=== PATIENT | female | born 1995 | race Caucasian/White ===

== ENCOUNTER 2023-03-17 14:02 | Emergency (ER) | payer MEDICAID, SELFPAY ==
[2023-03-17 14:39] VITALS: BP 128/79; PULSE 95; RESP 16; TEMP 37.1; O2SAT 98; BMI 29.3
[2023-03-17 16:28] LABS: Appearance Urine Clear (Clear); Bilirubin Urine Negative (Negative); Blood Urine Negative (Negative); Color Urine Yellow (Yellow); Glucose Urine Negative (Negative); Ketones Urine Trace (Negative); Leukocyte Esterase Urine Negative (Negative); Nitrite Urine Negative (Negative); Protein Urine Negative (Negative); Urobilinogen Urine 0.2 (0.2-1.0)
[2023-03-17 16:54] LABS: RBC Urine 0-2 (0-2); Squamous Epithelial Cell Urine Few (None-Few); WBC Urine 0-2 (0-5)
--- NOTE | 2023-03-17 17:35 | PC.NURSE ---
Pt reassessed, pain still right sided abdominal, has been constant since 1300 yesterday. Pain 5/10, denies fever or chills currently. Pt is nauseated, hurts to stand up and walk. NPO since 1315 today.
[2023-03-17 17:36] VITALS: BP 145/80; PULSE 68; RESP 18; TEMP 36.6; O2SAT 100
[2023-03-17 18:23] VITALS: BP 112/66; PULSE 64; RESP 16; O2SAT 99
--- NOTE | 2023-03-17 18:23 | CRLHL7_ITS ---
For Patients: As a result of the 21st Century Cures Act, medical imaging exams and procedure reports are released immediately into your electronic medical record. You may view this report before your referring provider. If you have questions, please contact your health care provider. INDICATION: Migratory right side abdominal pain, RUQ and RLQ. TECHNIQUE: CT of the abdomen and pelvis with 83 cc Isovue 370 IV contrast. Coronal and sagittal reconstructions. COMPARISON: None. FINDINGS: Subcentimeter hypodensity in the left hepatic lobe segment 2 is too small to characterize (series 2, image 17). The liver is otherwise unremarkable. The gallbladder, spleen, pancreas, and adrenal glands are negative. No biliary dilation. Hepatic and portal veins appear patent. Symmetric enhancement of the kidneys. No hydronephrosis or ureteral dilation. No obstructing urinary calculi identified. Small nonobstructing left renal caliceal stone. The bladder is normal in appearance. Uterus is unremarkable. No adnexal mass. Trace free fluid in the right adnexa. No small bowel dilation. Large amount of stool in the ascending and transverse colon. Negative appendix. No intraperitoneal free air. No lymphadenopathy. Small fat containing umbilical hernia. There are multiple noncalcified pulmonary nodules in the lung bases bilaterally. The largest nodule measures 4 mm in the lateral right lower lobe (series 3, image 1). The lung bases are otherwise clear. The bones are unremarkable. IMPRESSION: 1. Large amount of stool. The appendix is negative. 2. Trace free fluid in the right adnexa is likely physiologic. No adnexal mass is visualized. 3. Multiple small noncalcified pulmonary nodules are likely benign given patient age, however metastatic disease cannot be excluded. Correlate with any history of malignancy. 4. No other acute findings in the abdomen or pelvis. Please note that all CT scans at this facility use dose modulation, iterative reconstruction, and/or weight-based dosing when appropriate to reduce radiation dose to as low as reasonably achievable. Dictated by Camryn Mejia MD @ 03/17/2023 9:09:02 PM (Electronically Signed)
--- NOTE | 2023-03-17 18:25 | ED.GENADULT ---
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 Symptoms actually began last night with some intermittent crampy fairly generalized abdominal pain. She was able to go to bed but had trouble sleeping last night. Since about 1:30 a.m. pain has been worsened has been localizing more to her right side. The pain is both in the right upper quadrant and right lower quadrant. Perhaps worse in the right upper quadrant. She has been mildly nauseous but not vomiting. She does have a tendency to be constipated sometimes has to take stool softeners. She has been pooping today and yesterday. Stools have been firm and hard and difficult to pass but not really constipated. No bloody or mucousy stool. No diarrhea. She has not had any urinary symptoms such as dysuria, urgency, frequency, hematuria. No fever chills. No back pain. No known injury. She tried to take ibuprofen this morning but it did not help her pain. Pain was getting worse this afternoon so she came here to the ER. The pain does come and go , especially last night, but it has been more continuous since this morning. She has not had previous similar pains to this in the past. Related Data Home Medications Medication Instructions Recorded Confirmed desogestrel 0.15 mg-ethinyl 1 tab PO DAILY 03/17/23 03/17/23 estradiol 0.03 mg tablet (Apri) Previous Rx's Medication Instructions Recorded bisacodyl 10 mg rectal suppository 10 mg CA DAILY PRN constipation 03/17/23 (Laxative (bisacodyl)) #12 ea Allergies Allergy/AdvReac Type Severity Reaction Status Date / Time No Known Drug Allergies Allergy Verified 08/23/22 16:51 [facility] Medical History (Updated 03/17/23 @ 22:02 by Sahil Chen MD) Otitis externa ?H60.90 - Unspecified otitis externa, unspecified ear (ICD-10) AOM (acute otitis media) ?H66.90 - Otitis media, unspecified, unspecified ear (ICD-10) Social History Smoking Status: Never smoker How often do you have a drink containing alcohol: never AUDIT-C Alcohol total score: 0 Non-prescribed substance use: denies use Exam Narrative: Exam Narrative: Constitutional: Appears well-developed and well-nourished. Alert. Conversant. Non toxic. HENT: Head: Atraumatic. Nose: Nose normal. Mouth/Throat: Oral mucosa is clear and moist. no trismus. Pharynx normal. Tonsils symmetric. No tonsillar enlargement, erythema, or exudate. Eyes: Conjunctivae normal. EOM normal. Pupils equal, round, and reactive to light. No scleral icterus. Neck: Normal range of motion. Neck supple. No tracheal deviation present. Cardiovascular: Normal rate, regular rhythm. No gallop. No friction rub. No murmur heard. Symmetric radial artery pulses Pulmonary/Chest: Effort normal. No stridor. No respiratory distress. No wheezes. No rales. No rhonchi . No ribcage tenderness. Abdominal: Soft. Bowel sounds normal. No distension. No mass. Right upper quadrant> right lower quadrant and left lower quadrant tenderness. No significant epigastric or left upper quadrant tenderness. Right CVA tenderness but no left CVA tenderness. No rebound. No guarding. Musculoskeletal: RUE: Normal range of motion. No tenderness. No deformity LUE: Normal range of motion. No tenderness. No deformity RLE: Normal range of motion. No edema. No tenderness. No deformity LLE: Normal range of motion. No edema. No tenderness. No deformity Neurological: Alert and oriented to person, place, and time. Normal strength. CN II-VII intact. No sensory deficit. GCS eye subscore is 4. GCS verbal subscore is 5. GCS motor subscore is 6. Normal coordination Skin: Skin is warm and dry. No rash noted. No pallor. Normal capillary refill. Psychiatric: Normal mood. Normal affect. Const: Vital Signs, click to edit/add: Vital Signs - 24 hr 03/17/23 14:39 03/17/23 17:36 03/17/23 18:23 Temperature 98.7 F 97.8 F Pulse Rate [Right Pulse Oximeter] 95 68 64 Respiratory Rate 16 18 16 Blood Pressure [Ri ght Upper Arm] 128/79 145/80 H 112/66 Pulse Oximetry 98 100 99 Oxygen Delivery Me thod Room Air Room Air Room Air 03/17/23 20:00 03/17/23 20:00 03/17/23 22:07 Temperature 97.8 F Pulse Rate [Right Pulse Oximeter] 66 66 Respiratory Rate 16 16 Blood Pressure [Ri ght Upper Arm] 114/74 114/74 Pulse Oximetry 99 99 Oxygen Delivery Me thod Room Air Course Course ED Course: Recheck-pain tolerable to manage. Was considerably better after Toradol but that is turning to her off now. She does not need additional pain medicine at this time. Vital Signs Vital signs: Initial Vital Signs Temperature 98.7 F 03/17/23 14:39 Temperature Source Temporal Artery Scan 03/17/23 14:39 Pulse Rate 95 03/17/23 14:39 Respiratory Rate 16 03/17/23 14:39 Blood Pressure 128/79 03/17/23 14:39 Blood Pressure Mean 95 03/17/23 14:39 Blood Pressure Position Sitting 03/17/23 14:39 Pulse Oximetry 98 03/17/23 14:39 Oxygen Delivery Method Room Air 03/17/23 14:39 Vital Signs Temperature 98.7 F 03/17/23 14:39 Pulse Rate 95 03/17/23 14:39 Respiratory Rate 16 03/17/23 14:39 Blood Pressure 128/79 03/17/23 14:39 Pulse Oximetry 98 03/17/23 14:39 Oxygen Delivery Method Room Air 03/17/23 14:39 Temperature 97.8 F 03/17/23 22:07 Pulse Rate 66 03/17/23 22:07 Respiratory Rate 16 03/17/23 22:07 Blood Pressure 114/74 03/17/23 22:07 Pulse Oximetry 99 03/17/23 20:00 Oxygen Delivery Method Room Air 03/17/23 20:00 Medical Decision Making MDM Narrative Medical decision making narrative: Presented to the Emergency Department with colicky intermittent abdominal pain that began in generalized abdomen yesterday but is now more prominent on the right side. Pain is mostly in the right upper quadrant but also a bit in the right lower quadrant. The differential diagnosis of abdominal pain includes: Appendicitis, Bowel Obstruction, Ulcer, Ischemia, Cholecystitis, Diverticulitis, Pancreatitis, UTI, kidney stone, Enteritis/Colitis, amongst many other etiologies. Laboratory testing does not reveal a cause for the patient's pain. CT Imaging is noted to be normal save for findings of significant constipation.. The exact etiology of the abdominal pain is not clear at this time. However with colicky pain this may potentially be related to constipation. We will try to treat her constipation with magnesium citrate. First 150 mL dose administered here in the ER. She will take another dose in the morning. No life threatening cause or need for emergent surgery or hospital admission is detected today. The patient was advised that if symptoms do not completely resolve after BM or after another 12-24 hours re-evaluation with primary care or return to the ED is indicated. The patient also understands that if they worsen, they should return to the ER right away. I discussed the uncertainty about the diagnosis and answered the patient's questions. Abdominal pain return precautions discussed. Incidentally she has pulmonary nodules noted in her lung [place]. There are multiple of these. She has no history of malignancy or metastasis. Overall would be low risk based on age and demographics. Discussed the nodules with the patient and her mother. Recommended outpatient follow-up with a primary care to consider surveillance imaging. Lab Data Labs: Lab Results 03/17/23 03/17/23 03/17/23 Range/Units 14:34 18:46 Unknown WBC 6.47 (4.50-11.00) K/uL RBC 4.09 (4.00-5.20) m/uL Hgb 11.8 L (12.0-16.0) gm/dL Hct 36.3 (33.0-51.0) % MCV 89 (80-100) fL MCH 29 (26-34) pg MCHC 33 (32-36) gm/dL RDW Coeff of Lo 12.8 (11.5-15.5) % Plt Count 263 (140-440) K/uL Neut % (Auto) 70.1 (42.0-72.0) % Lymph % (Auto) 23.5 (20-44) % [place] % (Auto) 4.9 (0.0-11.0) % Eos % (Auto) 1.1 (0.0-7.0) % Baso % (Auto) 0.2 (0.0-3.0) % Neut # (Auto) 4.54 (1.7-7.0) K/uL Lymph # (Auto) 1.52 (0.90-2.90) K/uL [place] # (Auto) 0.30 (0.00-0.90) K/UL Eos # (Auto) 0.07 (0.00-0.50) K/uL Baso # (Auto) 0.01 (0.00-0.30) K/uL Abs Immat Gran (auto) 0.01 (0.00-0.30) K/uL Imm/Tot Granulo (auto) 0.2 % Sodium 140 (135-149) mmol/L Potassium 3.6 (3.6-5.1) mmol/L Chloride 109 (96-114) mmol/L Carbon Dioxide 24 (20-32) mmol/L Anion Gap 7 (7-15) mEq/L BUN 17 (5-24) mg/dL Creatinine 0.7 (0.5-1.5) mg/dL Estimated Creat Clear 97.17 Estimated GFR 123 ml/min Glucose 97 (60-115) mg/dL Calcium 9.1 (8.4-10.6) mg/dL Total Bilirubin 0.4 (0.1-1.5) mg/dL AST 30 (12-35) U/L ALT 21 (4-35) U/L Alkaline Phosphatase 68 (40-150) U/L Total Protein 7.7 (6.0-8.3) g/dL Albumin 4.3 (3.3-5.0) g/dL Lipase 122 (23-300) U/L Urine Color Yellow (Yellow) Urine Appearance Clear (Clear) Urine pH 7.0 (5.0-8.5) Ur Specific [place] 1.020 (1.000-1.030) Urine Protein Negative (Negative) Urine Glucose (UA) Negative (Negative) Urine Ketones Trace A (Negative) Urine Blood Negative (Negative) Urine Nitrite Negative (Negative) Urine Bilirubin Negative (Negative) Urine Urobilinogen 0.2 (0.2-1.0) Ur Leukocyte Esterase Negative (Negative) Urine RBC 0-2 (0-2) Urine WBC 0-2 (0-5) Ur Squamous Epith Cells Few (None-Few) Urine Bacteria None (None) Urine HCG, Qual Negative (Negative) Imaging Data CT scan - abdomen: Attestation: I have reviewed the pertinent imaging results. Radiologist's impression: IMPRESSION: 1. Large amount of stool. The appendix is negative. 2. Trace free fluid in the right adnexa is likely physiologic. No adnexal mass is visualized. 3. Multiple small noncalcified pulmonary nodules are likely benign given patient age, however metastatic disease cannot be excluded. Correlate with any history of malignancy. 4. No other acute findings in the abdomen or pelvis. Discharge Plan Discharge Clinical Impression: Multiple pulmonary nodules, Abdominal pain, Constipation Patient Disposition: Home, Self-Care Condition: Stable Instructions: Constipation (DC), Abdominal Pain (ED) Additional Instructions: For your abdominal pain-your labs and CT scan look reassuring at this time. We suspect your pain is probably related to constipation. Take the laxative with your 1st dose tonight and your 2nd dose tomorrow morning. If your not passing a bowel movement within 6 hours of your 2nd dose come back to the ER. If you pass a bowel movement but your pain does not resolve, return to the ER for recheck. If pain is not tremendously improved within 24 hours, come back to the ER to be rechecked. If you get worse, come back to the ER right away. On your CT scan the radiologist sees several small spots in your lungs. These nodules are probably benign. However, please follow-up with your regular doctor within the next couple of weeks to discuss the nodules. You may need to arrange a follow-up chest x-ray are scan in 6-12 months to recheck them. Prescriptions: New bisacodyl [Laxative (bisacodyl)] 10 mg suppository 10 mg CA DAILY PRN (Reason: constipation) Qty: 12 0RF No Action desogestrel-ethinyl estradiol [Apri] 0.15-0.03 mg tablet 1 tab PO DAILY Follow Up/Referrals: Provider,Not a Local [Primary Care Provider] - Stand Alone Forms: [facility] Info Instructions
[2023-03-17 18:31] LABS: Ur HCG Qualitative* Negative (Negative)
[2023-03-17] MEDS: KETOROLAC 15 MG/ML inj IVP (18:50)
[2023-03-17 19:02] LABS: Basophils Absolute Auto 0.01 K/uL (0.00-0.30); Basophils Percent Auto 0.2 % (0.0-3.0); Eosinophils Absolute Auto 0.07 K/uL (0.00-0.50); Eosinophils Percent Auto 1.1 % (0.0-7.0); Hematocrit 36.3 % (33.0-51.0); Hemoglobin* 11.8 gm/dL (12.0-16.0); Immature Granulocytes Abs Auto 0.01 K/uL (0.00-0.30); Immature Granulocytes Pct Auto 0.2 %; Lymphocytes Absolute Auto 1.52 K/uL (0.90-2.90); Lymphocytes Percent Auto 23.5 % (20-44); Mean Corpuscular HGB Conc 33 gm/dL (32-36); Mean Corpuscular Hemoglobin 29 pg (26-34); Mean Corpuscular Volume 89 fL (80-100); Monocytes Percent Auto 4.9 % (0.0-11.0); Neutrophils Absolute Auto 4.54 K/uL (1.7-7.0); Neutrophils Percent Auto 70.1 % (42.0-72.0); Platelet Count* 263 K/uL (140-440); RDW Coefficient of Variation % 12.8 % (11.5-15.5); Red Blood Count 4.09 m/uL (4.00-5.20); White Blood Count* 6.47 K/uL (4.50-11.00)
[2023-03-17 19:05] LABS: Slide Review Reflex No
[2023-03-17 19:12] LABS: Albumin* 4.3 g/dL (3.3-5.0)
[2023-03-17 19:13] LABS: Chloride* 109 mmol/L (96-114); Potassium* 3.6 mmol/L (3.6-5.1); Sodium* 140 mmol/L (135-149)
[2023-03-17 19:15] LABS: Anion Gap 7 mEq/L (7-15); Aspartate Amino Transferase* 30 U/L (12-35); Bilirubin Total* 0.4 mg/dL (0.1-1.5); Carbon Dioxide* 24 mmol/L (20-32); Creatinine* 0.7 mg/dL (0.5-1.5); Est. Creatinine Clearance* 97.17; Estimated Glomerular Filt Rate 123 ml/min
[2023-03-17 19:16] LABS: Alanine Aminotransferase* 21 U/L (4-35); Alkaline Phosphatase* 68 U/L (40-150); Blood Urea Nitrogen* 17 mg/dL (5-24); Calcium* 9.1 mg/dL (8.4-10.6); Glucose* 97 mg/dL (60-115); Total Protein* 7.7 g/dL (6.0-8.3)
[2023-03-17 19:26] LABS: Lipase* 122 U/L (23-300)
[2023-03-17 20:00] VITALS: BP 114/74; PULSE 66; RESP 16; O2SAT 99
[2023-03-17] MEDS: MAGNESIUM CITRATE 300 ML SOLUTION 150 ML PO (21:59)
[2023-03-17 22:07] VITALS: BP 114/74; PULSE 66; RESP 16; TEMP 36.6
== END 2023-03-17 22:09 | disposition home or self-care (01) ==
PROVIDERS: Emergency Medicine; Emergency Provider Emergency Medicine
DX: R91.8 Other nonspecific abnormal finding of lung field (principal); R10.9 Unspecified abdominal pain; K59.00 Constipation, unspecified
CPT/HCPCS: 36415; 74177; 80053; 81001; 81025; 83690; 85025; 94761; 96374; 99284; 99285; A9270; J1885; Q9967

== ENCOUNTER 2023-05-13 15:57 | Emergency (ER) | payer MEDICAID, SELFPAY ==
[2023-05-13 16:02] VITALS: BP 135/78; PULSE 87; RESP 20; TEMP 36.7; O2SAT 100; BMI 28.0
--- NOTE | 2023-05-13 16:39 | ED.GENADULT ---
HPI - General Adult General Chief complaint: Headache/Migraine Stated complaint: Headache, nausea, chills Time Seen by Provider: 05/13/23 16:17 Source: patient Mode of arrival: ambulatory Limitations: no limitations History of Present Illness HPI narrative: 27-year-old female coming in today complaining of not feeling well for couple of days. States that she has had a headache that runs across the entire forehead feels like pressure. She feels tired and weak. States that today she felt very lightheaded. She denies fevers or chills. Appetite has been normal. Last menstrual period was 2 weeks ago. She denies vomiting but has been feeling nauseated. She denies any rashes. No urinary symptoms. She does work in a [employer] school and has been in contact with multiple illnesses. She just finished treatment for strep pharyngitis. Denies any sore throat. Mild cough on and off. Past medical history is benign. She takes no regular medications. She does vape nicotine occasionally. Related Data Home Medications Medication Instructions Recorded Confirmed desogestrel 0.15 mg-ethinyl 1 tab PO DAILY 03/17/23 03/17/23 estradiol 0.03 mg tablet (Apri) Allergies Allergy/AdvReac Type Severity Reaction Status Date / Time No Known Drug Allergies Allergy Verified 05/02/23 17:20 Review of Systems Status of ROS: Reports: 10 or more systems reviewed and unremarkable except as noted in History and below [facility] Medical History Otitis externa ?H60.90 - Unspecified otitis externa, unspecified ear (ICD-10) AOM (acute otitis media) ?H66.90 - Otitis media, unspecified, unspecified ear (ICD-10) Social History Smoking Status: Never smoker How often do you have a drink containing alcohol: never AUDIT-C Alcohol total score: 0 Non-prescribed substance use: denies use Exam Narrative: Exam Narrative: Well-nourished well-developed patient in no acute distress. Alert and oriented. Answers questions appropriately. Mood and affect are appropriate. Thoughts are goal oriented and rational. No tangential or magical thinking noted. Patient speaks in full sentences without needing to catch her breath. HEENT: Normocephalic atraumatic. Pupils are equally round reactive to light. Extraocular muscles are intact. Conjunctivae are moist without any icterus noted. Moist mucous membranes. Posterior pharynx is normal. Neck is soft without any lymphadenopathy or thyromegaly. No masses are appreciated. Cardiovascular: Heart is regular rate and rhythm S1 and S2 are present without any murmurs. Lungs: Clear to auscultation bilaterally no wheezes rhonchi or rales are appreciated. Patient takes deep breaths without any discomfort. Abdomen: Soft and nontender nondistended with normal bowel sounds. Extremities: Bilateral lower extremities are without edema. Skin: Well perfused without any obvious rashes. Const: Vital Signs, click to edit/add: Vital Signs - 24 hr 05/13/23 16:02 Temperature 98.1 F Pulse Rate [Right Radial] 87 Respiratory Rate 20 Blood Pressure [Ri ght Upper Arm] 135/78 Pulse Oximetry 100 Oxygen Delivery Me thod Room Air Course Course ED Course: IV established and patient was given IV fluids, Toradol and Zofran for her symptoms. She did feel improvement. CBC was unremarkable. Chemistries are normal. Triple swab is positive for RSV. Vital Signs Vital signs: Initial Vital Signs Temperature 98.1 F 05/13/23 16:02 Temperature Source Temporal Artery Scan 05/13/23 16:02 Pulse Rate 87 05/13/23 16:02 Pulse Rhythm Regular 05/13/23 16:02 Pulse Strength 3+ Normal 05/13/23 16:02 Respiratory Rate 20 05/13/23 16:02 Blood Pressure 135/78 05/13/23 16:02 Blood Pressure Mean 97 05/13/23 16:02 Blood Pressure Position Supine 05/13/23 16:02 Pulse Oximetry 100 05/13/23 16:02 Oxygen Delivery Method Room Air 05/13/23 16:02 Vital Signs Temperature 98.1 F 05/13/23 16:02 Pulse Rate 87 05/13/23 16:02 Respiratory Rate 20 05/13/23 16:02 Blood Pressure 135/78 05/13/23 16:02 Pulse Oximetry 100 05/13/23 16:02 Oxygen Delivery Method Room Air 05/13/23 16:02 Temperature 98.1 F 05/13/23 16:02 Pulse Rate 87 05/13/23 16:02 Respiratory Rate 20 05/13/23 16:02 Blood Pressure 135/78 05/13/23 16:02 Pulse Oximetry 100 05/13/23 16:02 Oxygen Delivery Method Room Air 05/13/23 16:02 Medical Decision Making MDM Narrative Medical decision making narrative: 27-year-old female with RSV. We discussed symptomatic treatment reasons for follow-up. Lab Data Lab results reviewed: Yes I reviewed the patient's lab results Labs: Lab Results 05/13/23 05/13/23 Range/Units 16:52 Unknown WBC 8.66 (4.50-11.00) K/uL RBC 4.10 (4.00-5.20) m/uL Hgb 11.8 L (12.0-16.0) gm/dL Hct 35.8 (33.0-51.0) % MCV 87 (80-100) fL MCH 29 (26-34) pg MCHC 33 (32-36) gm/dL RDW Coeff of Lo 13.2 (11.5-15.5) % Plt Count 307 (140-440) K/uL Neut % (Auto) 79.9 H (42.0-72.0) % Lymph % (Auto) 13.5 L (20-44) % [place] % (Auto) 5.5 (0.0-11.0) % Eos % (Auto) 0.8 (0.0-7.0) % Baso % (Auto) 0.2 (0.0-3.0) % Neut # (Auto) 6.90 (1.7-7.0) K/uL Lymph # (Auto) 1.20 (0.90-2.90) K/uL [place] # (Auto) 0.50 (0.00-0.90) K/UL Eos # (Auto) 0.07 (0.00-0.50) K/uL Baso # (Auto) 0.02 (0.00-0.30) K/uL Abs Immat Gran (auto) 0.01 (0.00-0.30) K/uL Imm/Tot Granulo (auto) 0.1 % Sodium 139 (135-149) mmol/L Potassium 3.7 (3.6-5.1) mmol/L Chloride 104 (96-114) mmol/L Carbon Dioxide 25 (20-32) mmol/L Anion Gap 10 (7-15) mEq/L BUN 11 (5-24) mg/dL Creatinine 0.6 (0.5-1.5) mg/dL Estimated Creat Clear 113.36 Estimated GFR 128 ml/min Glucose 110 (60-115) mg/dL Calcium 9.2 (8.4-10.6) mg/dL HCG, Qual Negative (Negative) SARS-CoV-2 (PCR) Negative SARS-CoV-2 (Negative) Influenza Type A (PCR) Negative PCR FLU A (Negative) Influenza Type B (PCR) Negative PCR FLU B (Negative) RSV (PCR) POSITIVE PCR RSV A (Negative) Discharge Plan Discharge Clinical Impression: RSV infection Patient Disposition: Home, Self-Care Condition: Stable Additional Instructions: Make sure to stay well hydrated. Take Tylenol or ibuprofen as needed/as directed for fevers or achiness. Rest as much as possible. Prescriptions: No Action desogestrel-ethinyl estradiol [Apri] 0.15-0.03 mg tablet 1 tab PO DAILY Follow Up/Referrals: Provider,Not a Local [Primary Care Provider] - Stand Alone Forms: [facility] Info Instructions
[2023-05-13 17:00] LABS: Basophils Absolute Auto 0.02 K/uL (0.00-0.30); Basophils Percent Auto 0.2 % (0.0-3.0); Eosinophils Absolute Auto 0.07 K/uL (0.00-0.50); Eosinophils Percent Auto 0.8 % (0.0-7.0); Hematocrit 35.8 % (33.0-51.0); Hemoglobin* 11.8 gm/dL (12.0-16.0); Immature Granulocytes Abs Auto 0.01 K/uL (0.00-0.30); Immature Granulocytes Pct Auto 0.1 %; Lymphocytes Percent Auto 13.5 % (20-44); Mean Corpuscular HGB Conc 33 gm/dL (32-36); Mean Corpuscular Hemoglobin 29 pg (26-34); Mean Corpuscular Volume 87 fL (80-100); Monocytes Percent Auto 5.5 % (0.0-11.0); Neutrophils Percent Auto 79.9 % (42.0-72.0); Platelet Count* 307 K/uL (140-440); RDW Coefficient of Variation % 13.2 % (11.5-15.5); White Blood Count* 8.66 K/uL (4.50-11.00)
[2023-05-13 17:01] LABS: Slide Review Reflex No
[2023-05-13 17:18] LABS: PCR FLU A Negative PCR FLU A (Negative); PCR FLU B Negative PCR FLU B (Negative); PCR RSV POSITIVE PCR RSV (Negative); SARS PCR* Negative SARS-CoV-2 (Negative)
[2023-05-13 17:26] LABS: HCG Qualitative Serum* Negative (Negative)
[2023-05-13 17:39] LABS: Chloride* 104 mmol/L (96-114); Potassium* 3.7 mmol/L (3.6-5.1); Sodium* 139 mmol/L (135-149)
[2023-05-13 17:42] LABS: Anion Gap 10 mEq/L (7-15); Blood Urea Nitrogen* 11 mg/dL (5-24); Carbon Dioxide* 25 mmol/L (20-32); Creatinine* 0.6 mg/dL (0.5-1.5); Est. Creatinine Clearance* 113.36; Estimated Glomerular Filt Rate 128 ml/min
[2023-05-13 17:43] LABS: Calcium* 9.2 mg/dL (8.4-10.6); Glucose* 110 mg/dL (60-115)
== END 2023-05-13 18:22 | disposition home or self-care (01) ==
PROVIDERS: Emergency Provider Family Medicine
DX: R51.9 Headache, unspecified (principal); B97.4 Respiratory syncytial virus as the cause of diseases classified elsewhere
CPT/HCPCS: 36415; 80048; 84703; 85025; 87631; 96374; 96375; 99284

== ENCOUNTER 2024-01-10 08:07 | Emergency (ER) | payer MEDICAID, SELFPAY ==
[2024-01-10 08:09] VITALS: BP 114/69; PULSE 97; RESP 18; TEMP 37.1; O2SAT 98; BMI 29.3
--- NOTE | 2024-01-10 08:31 | ED.GENADULT ---
HPI - General Adult General Chief complaint: Cough Stated complaint: Cough, lost voice Time Seen by Provider: 01/10/24 08:16 History of Present Illness HPI narrative: This 28-year-old female comes in with her son and reports a cough that she has had for the past couple days. She does not report any fevers or shortness of breath. She states that she is on some ear drops for an ear infection. She arrives with normal vital signs. She does report some laryngitis and is mostly able to walk with her. Related Data Home Medications ?Medication ?Instructions ?Recorded ?Confirmed No Known Home Medications 01/10/24 01/10/24 Allergies Allergy/AdvReac Type Severity Reaction Status Date / Time No Known Drug Allergies Allergy Verified 01/05/24 14:35 Review of Systems Status of ROS: Reports: 10 or more systems reviewed and unremarkable except as noted in History and below Narrative: Constitutional: No fevers, no weight gain or loss. Eyes: No discharge. No vision changes. HENT: No congestion, no sore throat, no ear pain. Cardiovascular: No chest pain, no palpitations. Respiratory: No shortness of breath, no wheezes. Occasional cough. Gastrointestinal: No abdominal pain, no vomiting, no diarrhea. Genitourinary: No dysuria, no hematuria. Musculoskeletal: Normal range of motion. Skin: No rashes, no pruritis. Neurological: No dizziness, weakness, sensory change, speech change. Endo/Heme/Allergies: No bruising or bleeding. No polydipsia. Pysch: no suicidality, no anxiety, no insomnia. All other systems reviewed and are negative. [facility] Medical History Otitis externa ?H60.90 - Unspecified otitis externa, unspecified ear (ICD-10) AOM (acute otitis media) ?H66.90 - Otitis media, unspecified, unspecified ear (ICD-10) Social History Smoking Status: Never smoker How often do you have a drink containing alcohol: never AUDIT-C Alcohol total score: 0 Non-prescribed substance use: denies use Exam Narrative: Exam Narrative: Constitutional: Well-developed, well-nourished, no acute distress. HEENT: Normocephalic, atraumatic. Oropharynx appears normal. Tympanic membranes are not visualized bilaterally because of cerumen and ear drops in place. Neck: Normal range of motion. Nontender. Supple. Heart: Regular. No murmurs. Normal rate. Intact distal pulses. Lungs: Clear to auscultation. No chest discomfort. No wheezes, rhonchi, or rales. Abdomen: Normal bowel sounds. Nontender. No rebound tenderness. Genitalia: Deferred. Back: No midline tenderness. Normal range of motion. Extremities: Normal range of motion. No injury. Skin: Intact. No rash. Warm. No erythema or pallor. Neurologic: No altered sensation. No weakness. Alert and oriented. Psychiatric: No suicidality. No anxiety or depression. No insomnia. Nursing notes and vitals signs are reviewed. Const: Vital Signs, click to edit/add: Vital Signs - 24 hr 01/10/24 08:09 Temperature 98.7 F Pulse Rate [Right Pulse Oximeter] 97 Respiratory Rate 18 Blood Pressure [Ri ght Upper Arm] 114/69 Pulse Oximetry 98 Oxygen Delivery Me thod Room Air Course Vital Signs Vital signs: Initial Vital Signs Temperature 98.7 F 01/10/24 08:09 Temperature Source Temporal Artery Scan 01/10/24 08:09 Pulse Rate 97 01/10/24 08:09 Respiratory Rate 18 01/10/24 08:09 Blood Pressure 114/69 01/10/24 08:09 Blood Pressure Mean 84 01/10/24 08:09 Blood Pressure Position Sitting 01/10/24 08:09 Pulse Oximetry 98 01/10/24 08:09 Oxygen Delivery Method Room Air 01/10/24 08:09 Vital Signs Temperature 98.7 F 01/10/24 08:09 Pulse Rate 97 01/10/24 08:09 Respiratory Rate 18 01/10/24 08:09 Blood Pressure 114/69 01/10/24 08:09 Pulse Oximetry 98 01/10/24 08:09 Oxygen Delivery Method Room Air 01/10/24 08:09 Temperature 98.7 F 01/10/24 08:09 Pulse Rate 97 01/10/24 08:09 Respiratory Rate 18 01/10/24 08:09 Blood Pressure 114/69 01/10/24 08:09 Pulse Oximetry 98 01/10/24 08:09 Oxygen Delivery Method Room Air 01/10/24 08:09 Medical Decision Making MDM Narrative Medical decision making narrative: This patient comes in with upper respiratory symptoms and has normal vital signs. She does have laryngitis and symptoms are very typical of a viral infection. I did discuss nasal swab testing which the patient declined in a process of shared decision making. She did receive an oral dose of dexamethasone 10 mg. Discharge Plan Discharge Clinical Impression: Acute upper respiratory infection Patient Disposition: Home, Self-Care Condition: Stable Additional Instructions: Use [id number] medicines for cough, congestion, and pain as needed and directed. Follow up with MD return if worsening. Prescriptions: No Action No Known Home Medications Follow Up/Referrals: Provider,Not a Local [Primary Care Provider] - Stand Alone Forms: [facility] Medical Info Instructions
[2024-01-10] MEDS: dexAMETHasone 10 MG/ML inj PO (08:45)
== END 2024-01-10 08:50 | disposition home or self-care (01) ==
LOC: ED 08:45
PROVIDERS: Emergency Provider Emergency Medicine Emergency Medical Services
DX: J06.9 Acute upper respiratory infection, unspecified (principal)
CPT/HCPCS: 99283; 99284; J1100

== ENCOUNTER 2024-03-26 12:30 | Outpatient (CLI) | payer MEDICAID, SELFPAY ==
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
[2024-03-26 14:49] LABS: Chlamydia DNA Amplified* NOT DETECTED (No Detected); GC DNA Amplified* NOT DETECTED (No Detected)
== END 2024-03-26 12:31 | disposition home or self-care (01) ==
LOC: NFLDUCREF 12:31
PROVIDERS: Visit Provider Nurse Practitioner Family
DX: N89.8 Other specified noninflammatory disorders of vagina (principal)
CPT/HCPCS: 87086; 87491; 87591

== ENCOUNTER 2024-09-20 19:29 | Emergency (ER) | payer MEDICAID, SELFPAY ==
--- OUTSIDE RECORDS SUMMARY | 2024-09-20 19:31 | XMS_ITS | Clinical Summary ---
Author Organization [employer] [facility] Address [address] [place] [id number] Care Team Providers Care Box Annealer Name Role Phone Digna Contreras MD Primary [...] Negative Negative Past Medical History: . 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 Laterality Date TYMPANOSTOMY No data on file. Problems (from [...] she was 14. 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 Problems (from 04/12/18 to present) No problems associated with this episode. ANAMARIA Chase.....05/05/2018 8:48 AM chickenpox 09/12/1998 01/19/2010 Immunizations Immunization Administration Dates Next Due DTaP 01/08/2003, 0,01/08/1998,10/03,1997 [...] is your housing situation today? 1 06/07/2023 Utilities Answer Date Recorded Do you have trouble paying f or utilities (for example, heat, electricity, water, phone)? 1 06/07/2023 Comments No Sex and Gender Information Value Date Recorded Sex Assigned at Not on file Legal Sex Female 5:40 AM MEMS DEVICE SCIENTIST Gender Identity Not on file Sexual Orientation [...] 85 12/20/2023 3:20 PM CDT Temperature 36.6 C (97.9 F) 06/07/2023 8:50 AM MEMS DEVICE SCIENTIST Respiratory Rate 16 11/20/2020 4:04 PM CDT Oxygen Saturation 99% 12/20/2023 3:20 PM CDT Inhaled Oxygen Concentration - - Weight 72 kg (158 lb 12.8 oz) 12/20/2023 3:20 PM CDT Height 156.2 cm (5' 1.5) 12/20/2023 3:20 PM CDT Body Mass Index 29.52 12/20/2023 3:20 PM CDT Plan of Treatment Health Maintenance Due Date Last Done Comments COVID-19 vaccine series ( season) 2024 Pap test for age 21-65 12/03/2024 , 12/03/2021, 04/21/2020, Additional history exists BMI (ht and wt on same day) for age 18+ 12/19/2024 12/20/2023, 08/16/2023, 12/03/2021, Additional history exists Depression screening for age 12+ 12/19/2024 12/20/2023, 12/03/2021, 11/20/2020, Additional history exists Influenza Vaccine (Season Ended) 2025 02/06/2021, 02/20/2020, 04/12/2018, Additional history exists Tetanus booster 07/17/2030 07/17/2020, 08/22, 01/19/2010 HIV for age 15-65 Completed 02/20/2020, , 01/19/2017 Hepatitis C screening for age 18-79 Completed 02/20/2020, 04/12/2018, 01/19/2017 Tdap Completed 07/17/2020, 08/22, 01/19/2010 Pneumococcal series for age 6-49 Aged Out No longer eligible based on patient's age to complete this topic Procedures Procedure Name Priority Date/Time Associated Diagnosis Comments HPV HIGH RISK Routine 12/03/2021 4:20 PM CDT Pap smear for cervical cancer screening ANTI HIV 1/2 Routine 02/20/2020 3:56 PM CDT Encounter for supervision of normal first in first trimester (HC) ANTI HCV Routine 02/20/2020 3:56 PM CDT Encounter for supervision of normal first in first trimester (HC) from Last 3 Months or Most Recently Relevant to Health Maintenance Results * HPV HIGH RISK (12/03/2021 4:20 PM CDT) TYPE 16 Negative Negative 12/08/2021 6:00 AM CDT [facility] [employer] [facility] TYPE 18 Negative Negative 12/08/2021 6:00 AM CDT [facility] [employer] OTHER HIGH RISK TYPES Negative Negative 12/08/2021 6:00 AM CDT [facility] Other (Cervical) Non-Blood / Unknown 12/03/2021 4:20 PM CDT 12/04/2021 3:45 PM CDT Narrative [facility] - 12/08/2021 6:00 AM CDT HPV types 16, 18, 31, 33, 35, 39, 45, 51, 52, 56, 58, 59, 66 and 68 DNA were undetectable or below the pre-set threshold. Methodology: Romy Michele 4800 HPV Test Digna Contreras MD MICROBIOLOGY Fi nal Result [facility] [address] [place] [address], [place] * ANTI HCV (02/20/2020 3:56 PM CDT) HEPATITIS C ANTIBODY Non-React haritha Non-React haritha 02/21/2020 3:50 PM CDT [facility] Comment:Antibodies to HCV no t detected; does not exclude the possibility of exposure to HCV. Blood BLOOD SPECIMEN / Unknown Venipuncture / Unknown 02/20/2020 3:56 PM CDT 02/20/2020 3:57 PM CDT [employer] Final R esult [facility] [address] [place] [address], [place] * ANTI HIV 1/2 (02/20/2020 3:56 PM CDT) HIV-1/HIV-2 ANTIBODY Non-Reacti ve Non-Reacti ve 02/21/2020 5:08 PM CDT [facility] Comment:HIV-1 p24 and HIV-1/ HIV-2 Ab not detected. Blood BLOOD SPECIMEN / Unknown Venipuncture / Unknown 02/20/2020 3:56 PM CDT 02/20/2020 3:57 PM CDT us [employer] SEND OUTS Final R esult [facility] [address] [place] [address], from Last 3 Months or Most Recently Relevant to Health Maintenance Insurance [facility] Care Teams Box Annealer Relationship Specialty Start Date End Date Digna Contreras MD [address] [place], [place] [phone] PCP - General Family Practice 08/07/18
[2024-09-20 19:34] VITALS: BP 129/80; PULSE 82; RESP 16; TEMP 36.8; O2SAT 99; BMI 28.5
--- NOTE | 2024-09-20 19:38 | ED.GENADULT ---
HPI - General Adult General Date Seen: 09/20/24 Chief complaint: Laceration/Wound Stated complaint: cut L hand Time Seen by Provider: 09/20/24 19:31 History of Present Illness HPI narrative: Pleasant 29-year-old generally healthy female presents to the ER today with a laceration on her left hand. She accidentally cut herself with a kitchen knife about an hour prior to arrival. She was trying to use a sharp knife to pry apart some frozen hamburger patties which she accidentally slipped and stabbed herself in the palm of her left hand with the tip of the sharp kitchen knife. The knife did not break and there is no foreign material in the wound. The wound edge was gaping a little bit and she and her cousin were able to see some the subcutaneous tissue. It was bleeding dark red nonpulsatile blood and bleeding was controlled prior to arrival. Most recent tetanus was in 2020. Related Data Home Medications ?Medication ?Instructions ?Recorded ?Confirmed No Known Home Medications 05/11/24 05/11/24 Allergies Allergy/AdvReac Type Severity Reaction Status Date / Time No Known Drug Allergies Allergy Verified 05/11/24 13:38 [facility] Medical History Otitis externa ?H60.90 - Unspecified otitis externa, unspecified ear (ICD-10) AOM (acute otitis media) ?H66.90 - Otitis media, unspecified, unspecified ear (ICD-10) Social History Smoking Status: Never smoker How often do you have a drink containing alcohol: never AUDIT-C Alcohol total score: 0 Non-prescribed substance use: denies use Exam Narrative: Exam Narrative: Constitutional: Appears well-developed and well-nourished. Active. Non-toxic appearing. HENT: Head: Atraumatic. No signs of injury. Nose: No nasal discharge. Mouth/Throat: Mucous membranes are moist. Pharynx is normal. Tonsils symmetric. Uvula midline. Airway patent. Eyes: Conjunctivae normal and EOM are normal. Pupils are equal, round, and reactive to light. Right eye exhibits no discharge. Left eye exhibits no discharge. No icterus. Neck: Normal range of motion. Neck supple. No adenopathy. No stridor. Cardiovascular: Normal rate and regular rhythm. No murmur heard. No murmurs, rubs, or gallops. Brisk capillary refill Pulmonary/Chest: Effort normal. No stridor. No respiratory distress. No wheezes.No rhonchi. No rales. No retractions. Abdominal: Soft. Bowel sounds are normal. No distension. No mass. There is no tenderness. There is no rebound and no guarding. Musculoskeletal: Normal except for left hand. Normal range of motion. No edema. No tenderness. No deformity. The left hand she has a linear laceration on the palmar surface overlying the 3/4 digit. Length the laceration is about 1 cm. In the central portion of the laceration it is gaping about 2 mm. There is exposed dermis and subcutaneous tissue. She has intact flexion and extension of the MCP, PIP, DI P joint of the 2nd digit, 3rd digit, 4th digit, 5th digit. She has intact radial and ulnar digital nerve sensory function on the 2nd, 3rd, 4th, 5th digits. Thumb is normal. No visible foreign body. Neurological: Alert. Normal strength. No cranial nerve deficit or sensory deficit. Coordination normal. GCS eye subscore is 4. GCS verbal subscore is 5. GCS motor subscore is 6. Skin: Skin is warm. No rash noted. Const: Vital Signs, click to edit/add: Vital Signs - 24 hr 09/20/24 19:34 Temperature 98.2 F Pulse Rate [Pulse Oximeter] 82 Respiratory Rate 16 Blood Pressure [Ri ght Upper Arm] 129/80 Pulse Oximetry 99 Oxygen Delivery Me thod Room Air Course Vital Signs Vital signs: Initial Vital Signs Temperature 98.2 F 09/20/24 19:34 Temperature Source Temporal Artery Scan 09/20/24 19:34 Pulse Rate 82 09/20/24 19:34 Respiratory Rate 16 09/20/24 19:34 Blood Pressure 129/80 09/20/24 19:34 Blood Pressure Mean 96 09/20/24 19:34 Blood Pressure Position Sitting 09/20/24 19:34 Pulse Oximetry 99 09/20/24 19:34 Oxygen Delivery Method Room Air 09/20/24 19:34 Vital Signs Temperature 98.2 F 09/20/24 19:34 Pulse Rate 82 09/20/24 19:34 Respiratory Rate 16 09/20/24 19:34 Blood Pressure 129/80 09/20/24 19:34 Pulse Oximetry 99 09/20/24 19:34 Oxygen Delivery Method Room Air 09/20/24 19:34 Temperature 98.2 F 09/20/24 19:34 Pulse Rate 82 09/20/24 19:34 Respiratory Rate 16 09/20/24 19:34 Blood Pressure 129/80 09/20/24 19:34 Pulse Oximetry 99 09/20/24 19:34 Oxygen Delivery Method Room Air 09/20/24 19:34 Medical Decision Making MDM Narrative Medical decision making narrative: Findings and exam are consistent with an uncomplicated laceration which was repaired as noted above. There is no evidence at this time to suggest any associated fracture or foreign body. There is no evidence to suggest tendon or arterial injury and patient is neurologically in tact. The patient is to follow up for suture removal as instructed in 9 days. Indications to seek urgent reevaluation and signs of infection (including but not limited to increasing pain, redness, swelling, fevers, and drainage) were reviewed. Tetanus is up-to-date. This is a clean and non-contaminated wound in which prophylactic antibiotics are not indicated. An understanding of the discharge instructions and need for follow up were verbally confirmed. Discharge Plan Discharge Clinical Impression: Laceration of left palm Patient Disposition: Home, Self-Care Condition: Stable Instructions: Laceration (DC) Additional Instructions: As we discussed, please try to keep the wound covered with antibiotic ointment and a dressing every day until you have the stitches taken out. Follow-up with your doctor in 9 days for suture removal. He can not get into your doctor you can come back to the urgent care or ER for suture removal. Clean the wound gently once daily with warm water soaked gauze or a clean washcloth. After the wound is clean gently dried and then reapply antibiotic ointment and a dressing. Watch the area for signs of infection. If he develops redness, pus draining from the wound, or if you have red streak spreading upper down your hand, or if you have any other concerns, please come back to the ER right away. Prescriptions: No Action No Known Home Medications Follow Up/Referrals: Provider,Not a Local [Primary Care Provider] - Stand Alone Forms: [facility] Info Instructions Procedures Laceration 1 cm left palm laceration: Pre procedure diagnosis: 1 cm left palm laceration Verification/time out: correct patient and correct site Site: hand Side (If applicable): left Size (cm): 1 Description: linear Depth: simple, single layer Local Anesthetic: bupivacaine 0.25% Amount of anesthesia used (mL): 2 Pre-repair: wound explored Skin layer closed with: nylon Size (cm): 5-0 Number of sutures: 2 Technique: simple, interrupted
--- OUTSIDE RECORDS SUMMARY | 2024-09-20 20:33 | XMS_ITS | Clinical Summary ---
Author Organization [employer] [facility] [employer] [facility] Address [address] [place] [address] Care Team Providers Care Cbx Operator Name Role Phone Digna Contreras MD Primary [...] she was 14. Perpetrator is now in [facility], will get out in 2 years according [...] on file Legal Sex Female 5:40 AM SOW MANAGER Gender Identity Not on file Sexual Orientation [...] 36.6 C (97.9 F) 06/07/2023 8:50 AM SOW MANAGER Respiratory Rate 16 11/20/2020 4:04 PM CDT [...] 16 Negative Negative 12/08/2021 6:00 AM CDT [facility] [employer] [facility] TYPE 18 Negative Negative 12/08/2021 6:00 AM CDT [facility] [employer] OTHER HIGH RISK TYPES Negative Negative 12/08/2021 6:00 AM CDT [facility] Other (Cervical) Non-Blood / Unknown 12/03/2021 4:20 PM CDT 12/04/2021 3:45 PM CDT Narrative [facility] - 12/08/2021 6:00 AM CDT HPV types 16, 18, 31, 33, 35, 39, 45, 51, 52, 56, 58, 59, 66 and 68 DNA were undetectable or below the pre-set threshold. Methodology: Romy Michele 4800 HPV Test Digna Contreras MD MICROBIOLOGY Fi nal Result [facility] [address] [place] [address], [place] * ANTI HCV (02/20/2020 3:56 PM CDT) HEPATITIS C ANTIBODY Non-React haritha Non-React haritha 02/21/2020 3:50 PM CDT [facility] Comment:Antibodies to HCV no t detected; does not exclude the possibility of exposure to HCV. Blood BLOOD SPECIMEN / Unknown Venipuncture / Unknown 02/20/2020 3:56 PM CDT 02/20/2020 3:57 PM CDT [employer] Final R esult [facility] [address] [place] [address], [place] * ANTI HIV 1/2 (02/20/2020 3:56 PM CDT) HIV-1/HIV-2 ANTIBODY Non-Reacti ve Non-Reacti ve 02/21/2020 5:08 PM CDT [facility] Comment:HIV-1 p24 and HIV-1/ HIV-2 Ab not detected. Blood BLOOD SPECIMEN / Unknown Venipuncture / Unknown 02/20/2020 3:56 PM CDT 02/20/2020 3:57 PM CDT us [employer] SEND OUTS Final R esult [facility] [address] [place] [address], from Last 3 Months or Most Recently Relevant to Health Maintenance Insurance [facility] Care Teams Cbx Operator Relationship Specialty Start Date End Date Digna Contreras MD [address], [place] [phone] PCP - General Family Practice 08/07/18
== END 2024-09-20 20:49 | disposition home or self-care (01) ==
PROVIDERS: Emergency Provider Emergency Medicine
DX: S61.412A Laceration without foreign body of left hand, initial encounter (principal); W26.0XXA Contact with knife, initial encounter
CPT/HCPCS: 12001; 99282; 99283

== ENCOUNTER 2024-12-02 17:39 | Emergency (ER) | payer MEDICAID, SELFPAY ==
--- OUTSIDE RECORDS SUMMARY | 2024-12-02 17:42 | XMS_ITS | Clinical Summary ---
Author Organization [employer] [facility] [employer] [facility] Address [address] [place] [address] Care Team Providers Care Power House Control Room Operator Name Role Phone Digna Contreras MD [...] she was 14. 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 0 09/28/2024 Financial Resource Strain Answer Date R ecorded Difficulty of Paying Living Expenses 3 09/28/2024 Difficulty of Paying Living Expenses Not on file 09/28/2024 Food Insecurity Answer Date Recorded Do you worry your food will run out before you are able to buy more? 1 09/28/2024 Transportation Needs Answer Date Record ed Does lack of transportation keep you from medica l appointments? 1 09/28/2024 Does lack of transportation keep you from work, meetings or getting things that you need? 1 09/28/2024 Housing Stability Answer Date Recorded What is your housing situation today? 1 09/28/2024 Utilities Answer Date Recorded Do you have trouble paying f or utilities (for example, heat, electricity, water, phone)? 1 09/28/2024 Comments No Sex and Gender Information Value Date Recorded Sex Assigned at Not on file Legal Sex Female 5:40 AM CONDITIONER TENDER Gender Identity Not on file Sexual Orientation [...] Sign Reading Time Taken Comments Blood Pressure 103/68 09/28/2024 3:59 PM CDT Pulse 96 09/28/2024 3:59 PM CDT Temperature 36.6 C (97.9 F) 06/07/2023 8:50 AM CONDITIONER TENDER Respiratory Rate 16 11/20/2020 4:04 PM CDT Oxygen Saturation 98% 09/28/2024 3:59 PM CDT Inhaled Oxygen Concentration - - Weight 78.2 kg (172 lb 6.4 oz) 09/28/2024 3:59 P M CDT Height 156.2 cm (5' 1.5) 09/28/2024 3:59 PM CDT Body Mass Index 32.05 09/28/2024 3:59 PM CDT Plan of Treatment Health Maintenance Due Date Last Done Comments COVID-19 vaccine series ( - 2023- season) 2024 Pap test for age 21-65 12/03/2024 , 12/03/2021, 04/21/2020, Additional history exists Depression screening for age 12+ 12/19/2024 12/20/2023, 12/03/2021, 11/20/2020, Additional history exists Influenza Vaccine (#1) 2025 , 02/20/2020, 04/12/2018, Additional history exists BMI (ht and wt on same day) for age 18+ 09/28/2025 09/28/2024, 12/20/2023, 08/16/2023, Additional history exists Tetanus booster 07/17/2030 07/17/2020, 04/2 01/2019, 01/19/2010 Hepatitis B series for 19+ Completed 08/11, 1997, 1997 HIV for age 15-65 Completed 02/20/2020, , 01/19/2017 Hepatitis C screening for age 18-79 Completed 02/20/2020, 04/12/2018, 01/19/2017 Pneumococcal series for age 6-49 Aged Out No longer eligible based on patient's age to complete this topic Procedures Procedure Name Priority Date/Time Associated Diagnosis Comments NURSERY SCHOOL ATTENDANT THIN PREP PAP SCREEN IMAGED Routine 12/03/2021 4:20 PM CDT Pap smear for cervical cancer screening ANTI HIV 1/2 Routine 02/20/2020 3:56 PM CDT Encounter for supervision of normal first in first trimester (HC) ANTI HCV Routine 02/20/2020 3:56 PM CDT Encounter for supervision of normal first in first trimester (HC) from Last 3 Months or Most Recently Relevant to Health Maintenance Results * NURSERY SCHOOL ATTENDANT THIN PREP PAP SCREEN IMAGED (12/03/2021 4:20 PM CDT) Case Report Gynecologic Cytology Report Case: [id number] Authorizing Provider: Digna Contreras Collected: 12/03/2021 1620 MD Malathi Ordering Location: [facility] Received: 12/03/2021 1722 Clinic First Screen: Sal Sanchez Specimen: NURSERY SCHOOL ATTENDANT ThinPrep Vial Screening, Cervical 12/17/2021 5:37 PM CDT [facility] INTERPRETATION/ RESULT NEGATIVE FOR INTRAEPITHELIAL LESION OR MALIGNANCY (NIL) (none) 12/17/2021 5:37 PM CDT [facility] at 1737 CDT SPECIMEN ADEQUACY Satisfactory for evaluation Endocervical component present 12/17/2021 5:37 PM CDT [facility] HPV REQUEST HPV and PAP 12/17/2021 5:37 PM CDT [facility] ENTRAL LAB[facility] Date of LMP 11/24/2021 12/17/2021 5:37 PM CDT [facility] Last Pap Date 04/21/20 12/17/2021 5:37 PM CDT [facility] Last Pap Result NIL 5:37 PM CDT [facility] Abnormal Pap or [place] Bx in last 5 years No 12/17/2021 5:37 PM CDT [facility] Menstrual Status Regular Periods 12/17/2021 5:37 PM CDT [facility] ENTRAL LABORATORY [place] Bx Done Today No 12/17/2021 5:37 PM CDT [facility] ENTRAL LABORAT[facility] Additional Information None given 12/17/2021 5:37 PM CDT [facility] ENTRAL LABORATORY Comment: Cytology is screened at [facility] [employer] [facility] - [address], [place] [address] and [facility] - [address], [place] [address] and [facility] - [address] [place] [address] Interpreted at [facility] Central Laboratory - [address], [place] [address] Automated Review Successful 12/17/2021 5:37 PM CDT [facility] ENTRAL LABORATORY Comment:Specimen processed s uccessfully by automated research rn spec device, ThinPrep Imaging System, [employer] ANCILLARY TESTING NURSERY SCHOOL ATTENDANT HPV Ordered, Please see separate report 12/17/2021 5:37 PM CDT [facility] ENTRLA LABORATORY Note The pap test is a screening technique, not a diagnostic procedure. It is used primarily to screen for squamous cancers and precursor lesions. Published studies have shown that it is subject to both false negative and false positive results. The pap test should not be used as the sole means to diagnose or exclude pre-malignant and malignant lesions. 12/17/2021 5:37 PM CDT [facility] Other (Cervical) Non-Blood / Unknown 12/03/2021 4:20 PM CDT 12/03/2021 5:22 PM CDT Digna Contreras MD PATHOLOGY/CYTOLOGY Final Result [facility] [address] [place] [address], [place] * ANTI HCV (02/20/2020 3:56 PM CDT) HEPATITIS C ANTIBODY Non-React haritha Non-React haritha 02/21/2020 3:50 PM CDT [facility] TR[facility] LAB[facility]ATORY Comment:Antibodies to HCV no t detected; does not exclude the possibility of exposure to HCV. Blood BLOOD SPECIMEN / Unknown Venipuncture / Unknown 02/20/2020 3:56 PM CDT 02/20/2020 3:57 PM CDT [employer] Final R esult [facility] [address] [place] [address], [place] * ANTI HIV 1/2 (02/20/2020 3:56 PM CDT) HIV-1/HIV-2 ANTIBODY Non-Reacti ve Non-Reacti ve 02/21/2020 5:08 PM CDT [facility] Comment:HIV-1 p24 and HIV-1/ HIV-2 Ab not detected. Blood BLOOD SPECIMEN / Unknown Venipuncture / Unknown 02/20/2020 3:56 PM CDT 02/20/2020 3:57 PM CDT us [employer] SEND OUTS Final R esult [facility] [address] [place] [address], from Last 3 Months or Most Recently Relevant to Health Maintenance Insurance [facility] Care Teams Power House Control Room Operator Relationship Specialty Start Date End Date Digna Contreras MD [address] [place] [address] PCP - General Family Practice 08/07/18
[2024-12-02 18:44] VITALS: BP 118/79; PULSE 86; RESP 16; TEMP 36.8; O2SAT 99; BMI 31.1
[2024-12-02 19:30] LABS: Strep A DNA Probe* DETECTED (Not Detectd)
[2024-12-02 19:48] LABS: PCR FLU A Negative PCR FLU A (Negative); PCR FLU B Negative PCR FLU B (Negative); PCR RSV Negative PCR RSV (Negative); SARS PCR* Negative SARS-CoV-2 (Negative)
[2024-12-02 20:17] VITALS: BP 121/82; PULSE 81; RESP 16; TEMP 36.8; O2SAT 99
[2024-12-02 20:18] VITALS: BP 121/82; PULSE 81; RESP 16; TEMP 36.8
--- NOTE | 2024-12-02 22:15 | ED.GENADULT ---
HPI - General Adult General Date Seen: 12/02/24 Chief complaint: Sore Throat Stated complaint: Sore Throat Time Seen by Provider: 12/02/24 19:58 History of Present Illness HPI narrative: The this is a pleasant generally healthy 29-year-old female accompanied to the ER today by her family for evaluation of sore throat fever, pain with swallowing. Yesterday she had a fairly mild illness with fever and fatigue and body aches and mild sore throat. She had a little bit of nausea and a couple of episodes of small volume nonbloody emesis last night. Today she has ongoing fever and body aches but also worsening sore throat. Pain with swallowing. She has been alternating Tylenol and ibuprofen. She is able to eat soft foods and was able eat a small amount of some aches but no hard foods. She has been able to drink water. She has had minimal cough. No shortness of breath. No rash. 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 Related Data Home Medications ?Medication ?Instructions ?Recorded ?Confirmed No Known Home Medications 05/11/24 05/11/24 Allergies Allergy/AdvReac Type Severity Reaction Status Date / Time No Known Drug Allergies Allergy Verified 05/11/24 13:38 [facility] Medical History Otitis externa ?H60.90 - Unspecified otitis externa, unspecified ear (ICD-10) AOM (acute otitis media) ?H66.90 - Otitis media, unspecified, unspecified ear (ICD-10) Social History Smoking Status: Never smoker Second hand tobacco smoke exposure: No How often do you have a drink containing alcohol: never AUDIT-C Alcohol total score: 0 Non-prescribed substance use: denies use Exam Narrative: Exam Narrative: Constitutional: Appears well-developed and well-nourished. Alert. Conversant. Non toxic. HENT: Head: Atraumatic. Nose: Nose normal. Mouth/Throat: Oral mucosa is clear and moist. no trismus. . Uvula midline. She has significant erythema of her peritonsillar pillars and tonsils with exudates bilaterally. Tonsils are enlarged but symmetric. Tonsils are not ?kissing. ?. Phonation normal. No trismus. Tympanic membranes normal bilaterally. Eyes: Conjunctivae normal. EOM normal. Pupils equal, round, and reactive to light. No scleral icterus. Neck: Normal range of motion. Neck supple. No tracheal deviation present. Cardiovascular: Normal rate, regular rhythm. No gallop. No friction rub. No murmur heard. Pulmonary/Chest: Effort normal. No stridor. No respiratory distress. No wheezes. No rales. No rhonchi . Musculoskeletal: RUE: Normal range of motion. No tenderness. No deformity LUE: Normal range of motion. No tenderness. No deformity RLE: Normal range of motion. No edema. No tenderness. No deformity LLE: Normal range of motion. No edema. No tenderness. No deformity Lymph: No anterior or posterior cervical adenopathy. Neurological: Alert and oriented to person, place, and time. Normal strength. CN II-VII intact. No sensory deficit. GCS eye subscore is 4. GCS verbal subscore is 5. GCS motor subscore is 6. Normal coordination Skin: Skin is warm and dry. No rash noted. No pallor. Normal capillary refill. Psychiatric: Normal mood. Normal affect. Const: Vital Signs, click to edit/add: Vital Signs - 24 hr 12/02/24 18:44 12/02/24 20:17 12/02/24 20:18 Temperature 98.2 F 98.2 F 98.2 F Pulse Rate [Right Radial] 86 81 81 Respiratory Rate 16 16 16 Blood Pressure [Ri ght Upper Arm] 118/79 121/82 121/82 Pulse Oximetry 99 99 Oxygen Delivery Me thod Room Air Room Air Course Vital Signs Vital signs: Initial Vital Signs Respiratory Effort Normal, Spontaneous, Non-Labored 12/02/24 18:40 Respiratory Depth Normal 12/02/24 18:40 Respiratory Pattern Normal 12/02/24 18:40 Vital Signs Temperature 98.2 F 12/02/24 18:44 Pulse Rate 86 12/02/24 18:44 Respiratory Rate 16 12/02/24 18:44 Blood Pressure 118/79 12/02/24 18:44 Pulse Oximetry 99 12/02/24 18:44 Oxygen Delivery Method Room Air 12/02/24 18:44 Temperature 98.2 F 12/02/24 20:18 Pulse Rate 81 07/13/25 20:18 Respiratory Rate 16 12/02/24 20:18 Blood Pressure 121/82 12/02/24 20:18 Pulse Oximetry 99 12/02/24 20:17 Oxygen Delivery Method Room Air 12/02/24 20:17 Medical Decision Making MDM Narrative Medical decision making narrative: This patient presented with sore throat and clinical evidence of pharyngitis. The rapid strep test is positive. There is no clinical evidence of peritonsillar abscess, retropharyngeal abscess, Lemierre's Syndrome, epiglottis, or Moncho's angina. The patient's symptoms are consistent with streptococcal pharyngitis. I have recommended treatment with antibiotics and analgesics. Return if increasing pain, change in voice, neck pain, vomiting, fever, or shortness of breath. Follow-up with primary physician if not improving in 3-5 days [facility] prescription for amoxicillin. Lab Data Labs: Lab Results 12/02/24 Range/Units 18:32 SARS-CoV-2 (PCR) Negative SARS-CoV-2 (Negative) Influenza Type A (PCR) Negative PCR FLU A (Negative) Influenza Type B (PCR) Negative PCR FLU B (Negative) RSV (PCR) Negative PCR RSV (Negative) Group A Strep DNA DETECTED A (Not Detectd) Discharge Plan Discharge Clinical Impression: Strep pharyngitis Patient Disposition: Home, Self-Care Instructions: Strep Throat (DC) Additional Instructions: As we discussed, please come back to the ER right away if you have worsening pain in your throat, trouble swallowing, trouble breathing, high fever, or any other problems. It usually takes 3-4 days of antibiotics and your strep will gradually start to feel better. After you had 24 hours of antibiotics you should no longer be contagious and it is okay to go back to work when he start to feel better. Prescriptions: No Action No Known Home Medications Follow Up/Referrals: Provider,Not a Local [Non-Staff, Family Practice] Stand Alone Forms: Work[facility]School Release, [facility] Inst[facility]
== END 2024-12-02 20:24 | disposition home or self-care (01) ==
LOC: ED 20:20
PROVIDERS: Emergency Provider Emergency Medicine; PCP Family Medicine
DX: J02.0 Streptococcal pharyngitis (principal)
CPT/HCPCS: 87631; 87651; 99282; 99283

== ENCOUNTER 2025-01-10 08:48 | Emergency (ER) | payer MEDICAID, SELFPAY ==
[2025-01-10 08:50] VITALS: BP 126/80; PULSE 102; RESP 18; TEMP 36.8; O2SAT 97; BMI 32.2
--- OUTSIDE RECORDS SUMMARY | 2025-01-10 08:50 | XMS_ITS | Clinical Summary ---
Author Organization [employer] [facility] Address [address] [place] [id number] Care Team Providers Care Tile Inspector Name Role Phone Digna Contreras MD Primary [...] she was 14. 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 Respiratory Rate 16 11/20/2020 4:04 PM CDT [...] exists Tetanus booster 07/17/2030 07/17/2020, 08/22, 01/19/2010 Hepatitis B series for 19+ Completed 08/11, 1997, 1997 HIV for age 15-65 Completed 02/20/2020, , 01/19/2017 Hepatitis C screening for age 18-79 Completed 02/20/2020, 04/12/2018, 01/19/2017 Pneumococcal series for age 6-49 Aged Out No longer eligible based on patient's age to complete this topic Procedures Procedure Name Priority Date/Time Associated Diagnosis Comments EMERGENCY ROOM PHYSICIAN ASSISTANT THIN PREP PAP SCREEN IMAGED Routine 12/03/2021 [...] Recently Relevant to Health Maintenance Results * EMERGENCY ROOM PHYSICIAN ASSISTANT THIN PREP PAP SCREEN IMAGED (12/03/2021 4:20 PM CDT) Case Report Gynecologic Cytology Report Case: [id number] Authorizing Provider: Digna Contreras Collected: 12/03/2021 162Joe Servin MD Ordering Location: [facility] Received: 12/03/2021 1722 Clinic First Screen: Baccam, Minie Specimen: EMERGENCY ROOM PHYSICIAN ASSISTANT ThinPrep Vial Screening, Cervical 12/17/2021 5:37 PM CDT [facility] INTERPRETATION/ RESULT NEGATIVE FOR INTRAEPITHELIAL LESION OR MALIGNANCY (NIL) (none) 12/17/2021 5:37 PM CDT [facility] EN[facility]AL [facility] at 1737 CDT SPECIMEN ADEQUACY Satisfactory for evaluation Endocervical component present 12/17/2021 5:37 PM CDT [facility] HPV REQUEST HPV and PAP 12/17/2021 5:37 PM CDT [facility] Date of LMP 11/24/2021 12/17/2021 5:37 PM CDT [facility] Last Pap Date 04/21/20 12/17/2021 5:37 PM CDT [facility] Last Pap Result NIL 5:37 PM CDT [facility] Abnormal Pap or [place] Bx in last 5 years No 12/17/2021 5:37 PM CDT [facility] Menstrual Status Regular Periods 12/17/2021 5:37 PM CDT [facility] [place] Bx Done Today No 12/17/2021 5:37 PM CDT [facility]TR[facility] Additional Information None given 12/17/2021 5:37 PM CDT [facility] Comment: Cytology is screened at [facility] - [address], [place] [address] and [facility] - [address], [place] [address] and [facility] - [address] [place] [address] Interpreted at [facility] - [address], [place] [address] Automated Review Successful 12/17/2021 5:37 PM CDT [facility] Comment:Specimen processed s uccessfully by automated rn discharge device, ThinPrep Imaging System, [employer] ANCILLARY TESTING EMERGENCY ROOM PHYSICIAN ASSISTANT HPV Ordered, Please see separate report 12/17/2021 5:37 PM CDT [facility] Note The pap test is a [...] and malignant lesions. 12/17/2021 5:37 PM CDT [facility] Other (Cervical) Non-Blood / Unknown 12/03/2021 4:20 PM CDT 12/03/2021 5:22 PM CDT Digna Contreras MD PATHOLOGY/CYTOLOGY Final Result [facility] [address] [place] [address], [place] * ANTI HCV (02/20/2020 3:56 PM CDT) HEPATITIS C ANTIBODY Non-React haritha Non-React haritha 02/21/2020 3:50 PM CDT [facility] TRAL LABORATORY Comment:Antibodies to HCV no t detected; does not exclude the possibility of exposure to HCV. Blood BLOOD SPECIMEN / Unknown Venipuncture / Unknown 02/20/2020 3:56 PM CDT 02/20/2020 3:57 PM CDT [facility] Final R esult [facility] [address] [place] [address], [place] * ANTI HIV 1/2 (02/20/2020 3:56 PM CDT) HIV-1/HIV-2 ANTIBODY Non-Reacti ve Non-Reacti ve 02/21/2020 5:08 PM CDT [facility] TR[facility] Comment:HIV-1 p24 and HIV-1/ HIV-2 Ab not detected. Blood BLOOD SPECIMEN / Unknown Venipuncture / Unknown 02/20/2020 3:56 PM CDT 02/20/2020 3:57 PM CDT [facility] [employer] [facility] Final R esult [facility] [address] [place] [address], [place] from Last 3 Months or Most Recently Relevant to Health Maintenance Insurance [facility] Care Teams Tile Inspector Relationship Specialty Start Date End Date Digna [place] [address] PCP - General Family Practice 08/07/18
--- NOTE | 2025-01-10 09:03 | ED.GENADULT ---
HPI - General Adult General Chief complaint: Sore Throat Stated complaint: sore throat, fever Time Seen by Provider: 01/10/25 09:03 History of Present Illness HPI narrative: Patient presents to the emergency department complaining of a sore throat. Patient has had fevers off and on since Tuesday. 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 Patient states about a month ago she had strep. 29-year-old young woman presenting to the emergency depart with concern of sore throat. Has a little head congestion as well. 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 Reviewing records does show recent strep throat as well; looks to have been about 6 weeks ago. Over the last 2 or 3 days has been unwell. Temperature measured up to 101. No difficulty breathing or significant difficulty swallowing. No rashes. Related Data Home Medications ?Medication ?Instructions ?Recorded ?Confirmed No Known Home Medications 05/11/24 01/10/25 Allergies Allergy/AdvReac Type Severity Reaction Status Date / Time No Known Drug Allergies Allergy Verified 01/10/25 08:55 Review of Systems Status of ROS: Reports: 6 or more systems reviewed and unremarkable except as noted in History and below [facility] Medical History Otitis externa ?H60.90 - Unspecified otitis externa, unspecified ear (ICD-10) AOM (acute otitis media) ?H66.90 - Otitis media, unspecified, unspecified ear (ICD-10) Social History Smoking Status: Never smoker Second hand tobacco smoke exposure: No How often do you have a drink containing alcohol: never AUDIT-C Alcohol total score: 0 Non-prescribed substance use: denies use Exam Narrative: Exam Narrative: Pleasant. NAD. Calmly with her phone. Breathing easily. No stridor. Lungs appear to be clear. Heart rate on arrival was tachycardic I think it is still elevated on exam. Skin is warm dry without apparent rash. Oropharynx is moist. There is mild erythema posteriorly with a little tonsillar swelling left greater than right. Some white speckles present as well in the posterior oropharynx. Neck is supple without lymphadenopathy. Const: Vital Signs, click to edit/add: Vital Signs - 24 hr 01/10/25 08:50 Temperature 98.3 F Pulse Rate [Right Pulse Oximeter] 102 H Respiratory Rate 18 Blood Pressure [Ri ght Upper Arm] 126/80 Pulse Oximetry 97 Oxygen Delivery Me thod Room Air Documenting provider has reviewed patient's vital signs: yes Course Vital Signs Vital signs: Initial Vital Signs Temperature 98.3 F 01/10/25 08:50 Temperature Source Temporal Artery Scan 01/10/25 08:50 Pulse Rate 102 H 01/10/25 08:50 Pulse Rhythm Regular 01/10/25 08:50 Pulse Strength 3+ Normal 01/10/25 08:50 Respiratory Rate 18 01/10/25 08:50 Blood Pressure 126/80 01/10/25 08:50 Blood Pressure Mean 95 01/10/25 08:50 Blood Pressure Position Sitting 01/10/25 08:50 Pulse Oximetry 97 01/10/25 08:50 Oxygen Delivery Method Room Air 01/10/25 08:50 Vital Signs Temperature 98.3 F 01/10/25 08:50 Pulse Rate 102 H 01/10/25 08:50 Respiratory Rate 18 01/10/25 08:50 Blood Pressure 126/80 01/10/25 08:50 Pulse Oximetry 97 01/10/25 08:50 Oxygen Delivery Method Room Air 01/10/25 08:50 Temperature 98.3 F 01/10/25 08:50 Pulse Rate 102 H 01/10/25 08:50 Respiratory Rate 18 01/10/25 08:50 Blood Pressure 126/80 01/10/25 08:50 Pulse Oximetry 97 01/10/25 08:50 Oxygen Delivery Method Room Air 01/10/25 08:50 Medical Decision Making MDM Narrative Medical decision making narrative: Not unlikely that she does have strep. Would also screen for COVID considering community prevalence. Appearance of throat suggests more of a viral pharyngitis. Swabs are pending. Does not feel she needs any other interventions. Throat swab was positive for group a strep. Discussed treatment options. She would prefer oral medications. See patient discharge plan for further discussion Stay well-hydrated. Can take up to 800 mg of ibuprofen or up to 1000 mg of acetaminophen per dose. Prescribing penicillin from [facility]. Ten-day course. Can likely return to work after 24 hours of antibiotics. Boil all tooth brushes for 3 minutes and then toothbrushes. Boil yours every 3 days over course of antibiotics. Medical Records Medical records reviewed: Yes I reviewed the patient's medical records Lab Data Lab results reviewed: Yes I reviewed the patient's lab results Labs: Lab Results 01/10/25 Range/Units 09:19 SARS-CoV-2 (PCR) Negative SARS-CoV-2 (Negative) Group A Strep DNA DETECTED A (Not Detectd) Discharge Plan Discharge Clinical Impression: Acute streptococcal pharyngitis Patient Disposition: Home, Self-Care Condition: Stable Additional Instructions: Stay well-hydrated. Can take up to 800 mg of ibuprofen or up to 1000 mg of acetaminophen per dose. Prescribing penicillin from [facility]. Ten-day course. Can likely return to work after 24 hours of antibiotics. Boil all tooth brushes for 3 minutes and then toothbrushes. Boil yours every 3 days over course of antibiotics. Prescriptions: No Action No Known Home Medications Follow Up/Referrals: Digna Contreras MD [Primary Care Provider, Family Practice] Stand Alone Forms: [facility] Info Instructions
[2025-01-10 09:47] LABS: Strep A DNA Probe* DETECTED (Not Detectd)
[2025-01-10 10:03] LABS: SARS PCR* Negative SARS-CoV-2 (Negative)
== END 2025-01-10 10:19 | disposition home or self-care (01) ==
PROVIDERS: Emergency Provider Family Medicine; PCP Family Medicine
DX: J02.0 Streptococcal pharyngitis (principal)
CPT/HCPCS: 87635; 87651; 99283; 99284

== ENCOUNTER 2025-05-07 12:46 | Emergency (ER) | payer MEDICAID, SELFPAY ==
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
[2025-05-07 13:27] VITALS: BP 124/81; PULSE 96; RESP 18; TEMP 37; O2SAT 98
--- NOTE | 2025-05-07 13:31 | CRLHL7_ITS ---
For Patients: As a result of the Century Cures Act, medical imaging exams and procedure reports are released immediately into your electronic medical record. You may view this report before your referring provider. If you have questions, please contact your health care provider. INDICATION: Chest pain. Cough. TECHNIQUE: Chest 2 views. COMPARISON: None. FINDINGS: Cardiovascular and mediastinum: Heart size and vasculature are normal in caliber and appearance. Lungs and pleural spaces: Lungs are clear. No sign of infiltrate or mass. No sign of pleural effusion. No pneumothorax. Bones and soft tissues: No significant findings. IMPRESSION: No acute or significant findings. Dictated by Conrado Valadez MD @ 05/07/2025 2:46:28 PM (Electronically Signed)
--- NOTE | 2025-05-07 13:49 | ED.GENADULT ---
HPI - General Adult General Date Seen: 05/07/25 Chief complaint: Cough Stated complaint: Cough Time Seen by Provider: 05/07/25 12:49 Source: patient Mode of arrival: ambulatory Limitations: no limitations History of Present Illness HPI narrative: Patient is a 29-year-old female with no pertinent medical issues presenting to the emergency department for a cough. Her daughter has a fever her son was just diagnosed with influenza today. States she has had a cough for couple days. While she was waiting in triage and in our after she found out her son had influenza she started to notice some chest pain only when she coughs. Denies any chest pain otherwise. States she did not notice it any earlier. Denies feeling short of breath. Has not had any fevers or chills. Denies diarrhea or abdominal pain. No other concerns noted at this time. Related Data Home Medications ?Medication ?Instructions ?Recorded ?Confirmed No Known Home Medications 05/11/24 05/07/25 Allergies Allergy/AdvReac Type Severity Reaction Status Date / Time No Known Drug Allergies Allergy Verified 05/07/25 13:30 Review of Systems Status of ROS: Reports: 10 or more systems reviewed and unremarkable except as noted in History and below [facility] Medical History Otitis externa ?H60.90 - Unspecified otitis externa, unspecified ear (ICD-10) AOM (acute otitis media) ?H66.90 - Otitis media, unspecified, unspecified ear (ICD-10) Social History Smoking Status: Never smoker Second hand tobacco smoke exposure: No How often do you have a drink containing alcohol: never AUDIT-C Alcohol total score: 0 Non-prescribed substance use: denies use Exam Narrative: Exam Narrative: Const: Well-nourished, Well-developed, in mild distress Eyes: PERRL, no conjunctival injection, and symmetrical lids HENT: Atraumatic external nose and ears. Moist mucous membranes. Neck: Symmetric, trachea midline, No thyromegaly. CVS: RRR, No murmurs or gallops. Peripheral pulses 2+ and equal in all extremities RESP: Unlabored respiratory effort. Clear to auscultation bilaterally. GI: Nontender/Nondistended, No rebound or guarding. MSK:Extremities w/o deformity, Normal Active ROM, mild chest tenderness noted throughout the chest Skin: Warm, Dry. No rashes or lesions. Neuro: Normal Muscle tone, No focal neurological deficits. Psych: Awake, Alert, & Oriented x3. Appropriate mood and affect. Const: Vital Signs, click to edit/add: Vital Signs - 24 hr 05/07/25 13:27 Temperature 98.6 F Pulse Rate [Right Pulse Oximeter] 96 Respiratory Rate 18 Blood Pressure [Ri ght Upper Arm] 124/81 Pulse Oximetry 98 Oxygen Delivery Me thod Room Air Course Vital Signs Vital signs: Initial Vital Signs Temperature 98.6 F 05/07/25 13:27 Temperature Source Temporal Artery Scan 05/07/25 13:27 Pulse Rate 96 05/07/25 13:27 Pulse Rhythm Regular 05/07/25 13:27 Pulse Strength 3+ Normal 05/07/25 13:27 Respiratory Rate 18 05/07/25 13:27 Blood Pressure 124/81 05/07/25 13:27 Blood Pressure Mean 95 05/07/25 13:27 Blood Pressure Position Sitting 05/07/25 13:27 Pulse Oximetry 98 05/07/25 13:27 Oxygen Delivery Method Room Air 05/07/25 13:27 Vital Signs Temperature 98.6 F 05/07/25 13:27 Pulse Rate 96 05/07/25 13:27 Respiratory Rate 18 05/07/25 13:27 Blood Pressure 124/81 05/07/25 13:27 Pulse Oximetry 98 05/07/25 13:27 Oxygen Delivery Method Room Air 05/07/25 13:27 Temperature 98.6 F 05/07/25 13:27 Pulse Rate 96 05/07/25 13:27 Respiratory Rate 18 05/07/25 13:27 Blood Pressure 124/81 05/07/25 13:27 Pulse Oximetry 98 05/07/25 13:27 Oxygen Delivery Method Room Air 05/07/25 13:27 Medical Decision Making MDM Narrative Medical decision making narrative: Patient is a 29-year-old female presenting to emergency department for chest pain and a cough. Chest pain was only noticed about 10 minutes ago. She also states she does note there is actually pain there or if she is feeling anxious. She only notices anything when she coughs. Considering the known contact with influenza and how long it took for her to even notice her symptoms I have very low concern for myocarditis. Do not believe EKG or troponin is necessary. Will do viral swabs and chest x-ray to look for any other abnormalities though. She denies hemoptysis, history of blood clots, lower extremity swelling, recent surgeries, hormone use. PE can be rule out. Chest x-ray interpreted by myself and the radiologist showed no acute concerning abnormalities. She is RSV positive. She can be discharged. She is agreeable to this plan. Lab Data Labs: Lab Results 05/07/25 Range/Units 13:35 SARS-CoV-2 (PCR) Negative SARS-CoV-2 (Negative) Influenza Type A (PCR) Negative PCR FLU A (Negative) Influenza Type B (PCR) Negative PCR FLU B (Negative) RSV (PCR) POSITIVE PCR RSV A (Negative) Imaging Data Chest x-ray: Attestation: I have reviewed the pertinent imaging results. Radiologist's impression: No acute or significant findings. Dictated by Conrado Valadez MD @ 05/07/2025 2:46:28 PM Discharge Plan Discharge Clinical Impression: Respiratory syncytial virus (RSV) Qualifiers: RSV infection type: unspecified Qualified Code(s): B33.8 - Other specified viral diseases Patient Disposition: Home, Self-Care Condition: Stable Instructions: RSV (Respiratory Syncytial Virus) Infection (ED) Additional Instructions: Take Tylenol and ibuprofen for your symptoms. Return to emergency department for new or worsening symptoms. Prescriptions: No Action No Known Home Medications Follow Up/Referrals: Digna Contreras MD [Primary Care Provider, Family Practice] Stand Alone Forms: [employer] Info Instructions
[2025-05-07 14:23] LABS: PCR FLU A Negative PCR FLU A (Negative); PCR FLU B Negative PCR FLU B (Negative); PCR RSV POSITIVE PCR RSV (Negative); SARS PCR* Negative SARS-CoV-2 (Negative)
== END 2025-05-07 15:52 | disposition home or self-care (01) ==
PROVIDERS: Emergency Provider Student in an Organized Health Care Education/Training Program; PCP Family Medicine
DX: J06.9 Acute upper respiratory infection, unspecified (principal); B97.4 Respiratory syncytial virus as the cause of diseases classified elsewhere
CPT/HCPCS: 71046; 87631; 99283; 99284